=== PATIENT | female | born 1955 | race Caucasian/White ===

== ENCOUNTER 2020-02-14 11:26 | Emergency (ER) | payer BC ==
[~2020-02-14] VITALS: Ht 172.7 cm; Wt 84.0 kg
[2020-02-14 12:51] LABS: BASOPHILS % (AUTO) 0.3 % (0-1); EOSINOPHILS % (AUTO) 0.1 % (0-6); HEMATOCRIT 42.3 % (35.0-45.0); HEMOGLOBIN 14.1 g/dl (12.0-16.0); LYMPHOCYTES # (AUTO) 0.9 X10'3 (1.1-4.8); LYMPHOCYTES % (AUTO) 26.3 % (21-51); MEAN CORPUSCULAR HEMOGLOBIN 31.6 PG (27.0-31.0); MEAN CORPUSCULAR HGB CONC 33.4 g/dL (33.0-36.5); MEAN CORPUSCULAR VOLUME 94.4 FL (78-98); MONOCYTES # (AUTO) 0.3 X10'3 (0-0.9); MONOCYTES % (AUTO) 9.2 % (2-12); NEUTROPHILS # (AUTO) 2.1 X10'3 (1.8-7.7); NEUTROPHILS % (AUTO) 64.1 % (42-75); PLATELET COUNT 157 X10'3 (140-440); RED BLOOD COUNT 4.48 X10'6 (4.20-5.60); WHITE BLOOD COUNT 3.3 X10'3 (4.5-11.0)
[2020-02-14 13:08] LABS: ALANINE AMINOTRANSFERASE 28 U/L (12-78); ALBUMIN 3.4 G/DL (3.4-5.0); ALBUMIN/GLOBULIN RATIO 0.9 (1.1-1.5); ALKALINE PHOSPHATASE 93 IU/L (46-116); ANION GAP 8 (8-16); ASPARTATE AMINO TRANSFERASE 24 U/L (10-37); BILIRUBIN,TOTAL 0.4 MG/DL (0.1-1.0); BLOOD UREA NITROGEN 10 MG/DL (7-18); BUN/CREATININE RATIO 11.6 (6.6-38.0); CHLORIDE 106 MMOL/L (99-107); CREATININE 0.86 MG/DL (0.40-0.90); GLUCOSE 98 MG/DL (70-104); SODIUM 140 MMOL/L (135-145); TOTAL CARBON DIOXIDE 25.9 MMOL/L (24-32); TOTAL PROTEIN 7.1 G/DL (6.4-8.2); eGFR 67 ML/MIN
[2020-02-14 13:57] LABS: D-DIMER 0.59 MG/L FEU (0-0.50)
[2020-02-14] MEDS ORDERED: dexamethasone 4mg/ml inj IV STA (14:37)
[2020-02-14] MEDS ORDERED: acetaminophen 325mg tablet PO ONE (14:40)
[2020-02-14] MEDS ORDERED: normal saline 1000ML IV soln IVB ONE (14:40)
[2020-02-14] MEDS ORDERED: DEXA6TAB6 PO (15:25)
--- NOTE | 2020-02-14 15:44 | NUR ---
MEDICATION SCANNER IN PATIENT ROOM IS NOT WORKING. MEDS ADMINISTERED MANUALLY PER NURSE.
[2020-02-14] MEDS ORDERED: ALBU8.5H8 IH (16:30)
[2020-02-14] MEDS ORDERED: BENZ-16 PO (16:30)
[2020-02-14 16:44] VITALS: BP 151/88
== END 2020-02-14 16:39 | disposition home or self-care (01) ==
LOC: ER 11:27
DX: U07.1 COVID-19 (principal); R00.0 Tachycardia, unspecified; J45.909 Unspecified asthma, uncomplicated; Z79.899 Other long term (current) drug therapy
CPT/HCPCS: 36415; 71045; 80053; 83605; 83880; 84145; 84484; 85025; 85379; 87040; 87635; 93005; 96361; 96374; 99285; C9803; J1100; J7030